=== PATIENT | female | born 1930 | race Two or more races ===

== ENCOUNTER 2017-10-12 12:10 | Emergency (ER) | payer MEDICARE, MEDICAID ==
[~2017-10-12] VITALS: Ht 154.9 cm; Wt 76.2 kg
[~2017-10-12 12:10] MED LIST: NONE PER PT; OXYC-302 PO
[2017-10-12 12:13] VITALS: BP 144/74
== END 2017-10-12 13:08 | disposition home or self-care (01) ==
LOC: ED 13:06
DX: L40.0 Psoriasis vulgaris (principal); I10 Essential (primary) hypertension; G45.9 Transient cerebral ischemic attack, unspecified; Z79.899 Other long term (current) drug therapy
CPT/HCPCS: 82962; 99283